=== PATIENT | female | born 1990 | race Caucasian/White ===

== ENCOUNTER → 2022-03-24 | Outpatient (CLI) | payer OTHER | END | disposition home or self-care (01) | LOC: NST 15:12 | PROVIDERS: ATTEND Obstetrics & Gynecology Gynecology | DX: Z34.83 Encounter for supervision of other normal pregnancy, third trimester (principal) ==

== ENCOUNTER 2022-03-26 14:00 | Inpatient (IN) | payer OTHER ==
[~2022-03-26] VITALS: Ht 175.3 cm; Wt 98.0 kg
== END 2022-04-10 12:08 | disposition home or self-care (01) | DRG 807 ==
LOC: OB/GYN 03-31 14:00 → LDR 04-08 06:18 → OB/GYN 04-08 06:18
PROVIDERS: ADMIT Obstetrics & Gynecology; ATTEND Obstetrics & Gynecology
PROC: 10E0XZZ Delivery of Products of Conception, External Approach (ICD-10-PCS; principal; 2022-04-08)
PROC: 0KQM0ZZ Repair Perineum Muscle, Open Approach (ICD-10-PCS; 2022-04-08)
PROC: 4A1HXCZ Monitoring of Products of Conception, Cardiac Rate, External Approach (ICD-10-PCS; 2022-04-08)
DX: O70.1 Second degree perineal laceration during delivery (principal); Z37.0 Single live birth; Z3A.39 39 weeks gestation of pregnancy; Z20.822 Contact with and (suspected) exposure to COVID-19

== ENCOUNTER 2022-03-27 09:18 | Outpatient (CLI) | payer OTHER | END 2022-03-27 10:12 | disposition home or self-care (01) | LOC: NST 09:18 | PROVIDERS: ATTEND Obstetrics & Gynecology Gynecology | DX: Z34.83 Encounter for supervision of other normal pregnancy, third trimester (principal) ==

== ENCOUNTER 2022-03-31 11:22 | Outpatient (CLI) | payer OTHER | END 2022-03-31 12:05 | disposition home or self-care (01) | LOC: NST 11:22 | PROVIDERS: ATTEND Obstetrics & Gynecology Gynecology | DX: Z34.83 Encounter for supervision of other normal pregnancy, third trimester (principal) ==